=== PATIENT | female | born 2000 | race Caucasian/White ===

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

== ENCOUNTER 2019-02-06 17:19 | Emergency (ER) | payer OTHER ==
[~2019-02-06] VITALS: Ht 157.5 cm; Wt 58.1 kg
[2019-02-06] MEDS ORDERED: PEPCID AC20 MG PO (22:33)
[2019-02-06] MEDS ORDERED: ONDANSETRON ODT4 MG SL (22:33)
== END 2019-02-06 22:41 | disposition home or self-care (01) ==
LOC: ER 17:19
DX: K52.9 Noninfective gastroenteritis and colitis, unspecified (principal)

== ENCOUNTER 2019-04-08 06:51 | Outpatient (CLI) | payer OTHER ==
[~2019-04-08 06:51] MED LIST: ONDANSETRON ODT4 MG SL; PEPCID AC20 MG PO
== END 2019-04-08 06:56 | disposition home or self-care (01) ==
LOC: LAB 06:51
DX: E78.49 Other hyperlipidemia (principal); Z13.1 Encounter for screening for diabetes mellitus; R10.84 Generalized abdominal pain; R73.09 Other abnormal glucose; E03.8 Other specified hypothyroidism

== ENCOUNTER 2019-05-06 13:03 | Outpatient (CLI) | payer OTHER | END 2019-05-06 13:09 | disposition home or self-care (01) | LOC: LAB 13:03 | DX: Z72.51 High risk heterosexual behavior (principal) ==

== ENCOUNTER 2020-04-16 14:02 | Emergency (ER) | payer OTHER ==
[~2020-04-16] VITALS: Ht 160 cm; Wt 54.4 kg
== END 2020-04-16 19:45 | disposition home or self-care (01) ==
LOC: ER 14:02
DX: R51 Headache (principal); R07.89 Other chest pain; Z03.818 Encounter for observation for suspected exposure to other biological agents ruled out

== ENCOUNTER → 2020-06-07 10:15 | Outpatient (CLI) | payer OTHER | END | disposition home or self-care (01) | LOC: LAB 10:15 | PROVIDERS: ATTEND Internal Medicine | DX: E03.8 Other specified hypothyroidism (principal); E78.89 Other lipoprotein metabolism disorders; I10 Essential (primary) hypertension; M54.5 Low back pain; Z01.810 Encounter for preprocedural cardiovascular examination; E46 Unspecified protein-calorie malnutrition; E44.0 Moderate protein-calorie malnutrition; E44.1 Mild protein-calorie malnutrition; E11.9 Type 2 diabetes mellitus without complications; Z12.11 Encounter for screening for malignant neoplasm of colon ==

== ENCOUNTER → 2020-06-11 07:24 | Outpatient (CLI) | payer OTHER | END | disposition home or self-care (01) | LOC: LAB 07:24 | PROVIDERS: ATTEND Internal Medicine | DX: E03.8 Other specified hypothyroidism (principal); I10 Essential (primary) hypertension; M54.5 Low back pain; Z01.810 Encounter for preprocedural cardiovascular examination; E78.89 Other lipoprotein metabolism disorders; E46 Unspecified protein-calorie malnutrition; E44.0 Moderate protein-calorie malnutrition; E44.1 Mild protein-calorie malnutrition; E11.9 Type 2 diabetes mellitus without complications; Z12.11 Encounter for screening for malignant neoplasm of colon ==

== ENCOUNTER 2021-03-18 11:23 | Emergency (ER) | payer OTHER ==
[~2021-03-18] VITALS: Ht 157.5 cm; Wt 61.7 kg
[2021-03-18] MEDS ORDERED: ZITHROMAX500 MG PO (16:59)
[2021-03-18] MEDS ORDERED: MUCINEX DM ER1 EAC1 PO (16:59)
[2021-03-18] MEDS ORDERED: KETO10TA2 PO (16:59)
== END 2021-03-18 18:00 ==
LOC: ER 11:23
DX: J06.9 Acute upper respiratory infection, unspecified (principal); B34.9 Viral infection, unspecified

== ENCOUNTER 2022-03-01 14:10 | Emergency (ER) | payer OTHER ==
[~2022-03-01] VITALS: Ht 160 cm; Wt 59.0 kg
[~2022-03-01 14:10] MED LIST changes: +KETO10TA2 PO; +MUCINEX DM ER1 EAC1 PO; +ZITHROMAX500 MG PO
== END 2022-03-01 17:54 | disposition home or self-care (01) ==
LOC: ER 14:10
DX: U07.1 COVID-19 (principal)